=== PATIENT | female | born 1955 | race African-American/Black ===

== ENCOUNTER 2021-02-04 03:57 | Observation (INO) | payer OTHER ==
[2021-02-04 04:18] LABS: HEMOGLOBIN 12.8 gm/dl (12.3-15.3); RED BLOOD COUNT 4.04 M/UL (4.00-5.10); WHITE BLOOD COUNT 6.5 K/UL (4.5-11.0)
[2021-02-04 04:52] LABS: BUN/CREATININE RATIO 8 (0-10)
[2021-02-04] MEDS ORDERED: LOSARTAN POTASS50 MG PO (11:15)
[2021-02-04] MEDS ORDERED: NORVASC5 MG PO (11:16)
[2021-02-04] MEDS ORDERED: CRESTOR5 MG PO (11:17)
[2021-02-04] MEDS ORDERED: PROTONIX40 MG PO (11:17)
== END 2021-02-04 12:00 | disposition left against medical advice (07) ==
LOC: ER1 03:57 → CDU 05:37
PROVIDERS: Emergency Medicine; ADMIT Internal Medicine
DX: R55 Syncope and collapse (principal); R79.1 Abnormal coagulation profile; I12.9 Hypertensive chronic kidney disease with stage 1 through stage 4 chronic kidney disease, or unspecified chronic kidney disease; N18.9 Chronic kidney disease, unspecified; E78.5 Hyperlipidemia, unspecified; F20.9 Schizophrenia, unspecified; M19.90 Unspecified osteoarthritis, unspecified site; Z20.822 Contact with and (suspected) exposure to COVID-19; Z88.5 Allergy status to narcotic agent; Z53.29 Procedure and treatment not carried out because of patient's decision for other reasons; Z87.891 Personal history of nicotine dependence
CPT/HCPCS: 70450; 71045; 80053; 82550; 82553; 83874; 83880; 84484; 85025; 85379; 93005; 99285; G0378; U0002